=== PATIENT | female | born 1995 | race American Indian/Alaskan Native ===

== ENCOUNTER 2016-10-30 08:10 | Emergency (ER) | payer MEDICAID ==
[2016-10-30 08:27] VITALS: BP 94/49
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
[2016-10-30] MEDS ORDERED: TORADOL IM ONE (11:14)
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
== END 2016-10-30 12:45 | disposition home or self-care (01) ==
LOC: ED 08:10
DX: S06.0X0A Concussion without loss of consciousness, initial encounter (principal); S00.83XA Contusion of other part of head, initial encounter; Z87.891 Personal history of nicotine dependence; Y08.89XA Assault by other specified means, initial encounter; Y93.9 Activity, unspecified; Y92.9 Unspecified place or not applicable; Y99.9 Unspecified external cause status
CPT/HCPCS: 70450; 81025; 96372; 99284; J1885